=== PATIENT | male | born 1975 | race Caucasian/White ===

== ENCOUNTER 2019-06-17 16:13 | Emergency (ER) | payer OTHER ==
[2019-06-17 16:17] VITALS: BP 131/76; PULSE 79; TEMP 98.2; BMI 27.8
[2019-06-17] MEDS ORDERED: TETRACAINE 0.5% HCL 0.6ML DROPPER.BOTTLE OD ONE (17:22)
[2019-06-17] MEDS ORDERED: FLUORESCEIN NA 1 EA STRIP OD ONE (17:22)
[2019-06-17] MEDS ORDERED: FLUORESCEIN NA 1 EA STRIP ONE (17:25)
[2019-06-17] MEDS ORDERED: TETRACAINE 0.5% OPHTH SOLN 2 ML BOTTLE ONE (17:25)
[2019-06-17] MEDS ORDERED: ERYTHROMYCIN 0.5% OPHTHALMIC OINTMENT 3.5 GM TUBE OD ONE (17:31)
--- NOTE | 2019-06-17 17:35 | PDOC ---
History of Present Illness - General Chief Complaint: Eye Problem Stated Complaint: EYE PROBLEM Time Seen by Provider: 06/17/19 16:30 History Source: Patient Exam Limitations: No Limitations - History of Present Illness Initial Comments: 06/17/19 17:35 HISTORY OF PRESENT ILLNESS: This a 44-year-old otherwise healthy male who presents the emergency department for evaluation of right eye irritation over 2 days. Patient was concerned that he has itching burning sensation in his right eye with slight discharge present. The patient was concerned that his eyes now read the pain has not subsided over the past 2 days. No recent travel or sick contacts. PAST MEDICAL HISTORY: Denies past medical history SURGICAL HISTORY: Denies ALLERGIES: No known drug allergies REVIEW OF SYSTEMS General/Constitutional: Denies fever or chills. Denies weakness, weight change. HEENT: See HPI Cardiovascular: Denies chest pain or shortness of breath. Respiratory: Denies cough, wheezing, or hemoptysis. Gastrointestinal: Denies nausea, vomiting, diarrhea or constipation. Denies rectal bleeding. Genitourinary: Denies dysuria, frequency, or change in urination. Musculoskeletal: Denies joint or muscle swelling or pain. Denies neck or back pain. Skin and breasts: Denies rash or easy bruising. Neurologic: Denies headache, vertigo, loss of consciousness, or loss of sensation. Psychiatric: Denies depression or anxiety. Endocrine: Denies increased thirst. Denies abnormal weight change. Hematologic/Lymphatic: Denies anemia, easy bleeding, or history of blood clots. Allergic/Immunologic: Denies hives or skin allergy. Denies latex allergy. PHYSICAL EXAM General Appearance: Well-appearing, appropriately dressed. No apparent distress , no intoxication. HEENT: EOMI, PERRLA, normal ENT inspection, normal voice, TMs normal, pharynx normal. No conjunctival pallor. (+) photophobia. No scleral icterus. EYE EXAMINATION: Visual acuity: 20/20 in the left eye, 20/20 in the right eye, near, uncorrected The lid and lashes are normal. Extraocular movements are intact. The conjunctiva is erythematous with scleral injection extending to the limbus. No discharge The corneal surface is normal post tetracaine and fluorescein. There is no corneal abrasion or foreign body. There is no abnormal fluorescein uptake. The pupils are equal, round and reactive to light. The fundus shows normal vessels and normal discs. Neck: Supple. Trachea midline. No tenderness, rigidity, carotid bruit, stridor , lymphadenopathy, or thyromegaly. Neurologic: [employer] II-XII intact. Fully oriented, alert. Appropriate mood/affect. Motor strength 5/5. No appreciable EOM palsy, facial droop or sensory deficit. 06/17/19 17:37 06/17/19 17:38 06/17/19 17:39 Past History - Past Medical History Allergies/Adverse Reactions: Allergies Allergy/AdvReac Type Severity Reaction Status Date / Time No Known Allergies Allergy Verified 06/17/19 17:12 Home Medications: Ambulatory Orders Erythromycin 0.5% Eye Ointment [Erythromycin 0.5% Eye Ointment -] 1 applic OD QID #1 tube 06/17/19 Magnesium 250 mg PO DAILY 06/17/19 Vit C/Ascorb Sod/Multivit-Min [Emergen-C 500 mg Chewable Tab] 1 tab PO DAILY COPD: No - Psycho Social/Smoking Cessation Hx Smoking History: Never smoked *Physical Exam - Vital Signs Last Vital Signs Temp Pulse Resp BP Pulse Ox 98.2 F 79 18 131/76 99 06/17/19 16:14 06/17/19 16:14 06/17/19 16:14 06/17/19 16:14 06/17/19 16:14 Medical Decision Making - Medical Decision Making 06/17/19 17:34 A/P: 44-year-old male with right eye conjunctivitis EYE EXAMINATION: Visual acuity: 20/20 in the left eye, 20/20 in the right eye, near, uncorrected The lid and lashes are normal. Extraocular movements are intact. The conjunctiva is erythematous with scleral injection extending to the limbus. No discharge The corneal surface is normal post tetracaine and fluorescein. There is no corneal abrasion or foreign body. There is no abnormal fluorescein uptake. The pupils are equal, round and reactive to light. The fundus shows normal vessels and normal discs. Erythromycin ointment Discharge home Discharge - Discharge Information Problems reviewed: Yes Clinical Impression/Diagnosis: Conjunctivitis Qualifiers: Conjunctivitis type: acute Acute conjunctivitis type: unspecified Laterality: right Qualified Code(s): H10.31 - Unspecified acute conjunctivitis, right eye Condition: Stable Disposition: HOME - Admission No - Additional Discharge Information Prescriptions: Erythromycin 0.5% Eye Ointment [Erythromycin 0.5% Eye Ointment -] 1 applic OD QID #1 tube - Follow up/Referral Referrals: Patrick Stoll MD [Primary Care Provider] - Alfonso Bergeron MD [Staff Physician] - - Patient Discharge Instructions Patient Printed Discharge Instructions: DI for Conjunctivitis Additional Instructions: Rest, avoid rubbing eyes Wash hands frequently as this is very contagious Wash hands, use eye drops as directed, wash hands after use Do not share eye ointment with other person to may become infected as this will infect them Erthromycin ointment to affected eye 4 times a day for 5 days Avoid contact with others until redness and discharge is gone from eyes. Followup with ophthalmology or private physician as needed - Post Discharge Activity
[2019-06-17] MEDS ORDERED: ERYTHROMYCIN 0.5% OPHTHALMIC OINTMENT 3.5 GM TUBE ONE (17:38)
== END 2019-06-17 17:43 | disposition home or self-care (01) ==
LOC: JERFT 16:13
PROC: 4A07X0Z Measurement of Visual Acuity, External Approach (ICD-10-PCS; principal; 2019-06-17)
DX: H10.31 Unspecified acute conjunctivitis, right eye (principal)
CPT/HCPCS: 99173; 99281-25

== ENCOUNTER 2020-11-29 14:23 | Emergency (ER) | payer OTHER ==
[2020-11-29 14:32] VITALS: BP 150/93; PULSE 71; TEMP 97.9; BMI 31.9
[2020-11-29] MEDS ORDERED: IBUPROFEN 400 MG TABLET (FP) PO ONE ×2 (17:03→17:25)
== END 2020-11-29 18:21 | disposition home or self-care (01) ==
LOC: JER 14:23
DX: R51.9 Headache, unspecified (principal)
CPT/HCPCS: 70450-TC; 93005; 93010; 99284-25

== ENCOUNTER 2021-11-12 23:17 | Emergency (ER) | payer OTHER ==
[2021-11-12 23:46] VITALS: BP 171/77; PULSE 71; TEMP 97.7; BMI 29.6
[2021-11-13] MEDS ORDERED: METOCLOPRAMIDE HCL INJECTION 10 MG/2 ML VIAL ONE (00:18)
[2021-11-13] MEDS ORDERED: ACETAMINOPHEN INJECTION 100 ML IVPB ONE (00:18)
[2021-11-13 00:24] LABS: BASO % 0.8 % (0-2.0); EOS % 3.3 % (0-4.5); HEMATOCRIT 46.7 % (35.4-49); HEMOGLOBIN 15.5 GM/dL (11.7-16.9); LYMPH % 51.5 % (8-40); MCH 27.5 pg (25.7-33.7); MCHC 33.1 g/dl (32.0-35.9); MEAN CELL VOLUME 83.1 fl (80-96); MEAN PLT VOLUME 7.9 fl (7.5-11.1); MONO % 9.2 % (3.8-10.2); NEUT % 35.2 % (42.8-82.8); PLATELET COUNT 217 10^3/uL (134-434); RBC 5.62 M/mm3 (4.00-5.60); RDW 14.7 % (11.9-15.9); WHITE BLOOD COUNT 3.6 K/mm3 (4.0-10.0)
[2021-11-13] MEDS ORDERED: SODIUM CHLORIDE 0.9% 1000 ML INFUS.BAG IV ONE (00:25)
[2021-11-13] MEDS ORDERED: ACETAMINOPHEN 1000 MG/100 ML BAG IVPB ONE (00:25)
[2021-11-13] MEDS ORDERED: METOCLOPRAMIDE HCL INJECTION 10 MG/2 ML VIAL IVPUSH ONE (00:25)
[2021-11-13] MEDS ORDERED: KETOROLAC TROMETHAMINE 15 MG/ML VIAL IVPUSH ONE (00:27)
[2021-11-13] MEDS ORDERED: KETOROLAC TROMETHAMINE 15 MG/ML VIAL ONE (00:28)
[2021-11-13 00:42] LABS: CALCIUM 9.5 mg/dL (8.5-10.1)
[2021-11-13 00:43] LABS: ALBUMIN 4.1 g/dl (3.4-5.0); BLOOD UREA NITROGEN 16.6 mg/dL (7-18); MAGNESIUM 2.3 mg/dL (1.8-2.4)
[2021-11-13 00:46] LABS: CREATININE 1.2 mg/dL (0.55-1.3)
[2021-11-13 00:48] LABS: BILIRUBIN,TOTAL 0.2 mg/dL (0.2-1); TOT PROT 7.8 g/dl (6.4-8.2)
== END 2021-11-13 04:59 | disposition home or self-care (01) ==
LOC: JER 23:17
PROC: 3E033GC Introduction of Other Therapeutic Substance into Peripheral Vein, Percutaneous Approach (ICD-10-PCS; principal; 2021-11-12)
DX: R51.9 Headache, unspecified (principal); D72.819 Decreased white blood cell count, unspecified
CPT/HCPCS: 36415; 80053; 83735; 85025; 99284-25

== ENCOUNTER 2023-09-18 18:25 | Emergency (ER) | payer OTHER ==
[2023-09-18 18:40] VITALS: RESP 18; TEMP 98.6; BMI 28.3
[2023-09-18 18:41] VITALS: BP 142/85; PULSE 83
[2023-09-18] MEDS ORDERED: ACETAMINOPHEN 1000 MG/100 ML BAG IVPB ONE (19:09)
[2023-09-18] MEDS ORDERED: SODIUM CHLORIDE 0.9% 500 ML INFUS.BAG IV ONE (19:09)
[2023-09-18 19:32] LABS: BASO % 1.2 % (0-2.0); EOS % 2.7 % (0-4.5); HEMATOCRIT 49.4 % (35.4-49); HEMOGLOBIN 16.6 GM/dL (11.7-16.9); LYMPH % 47.3 % (8-40); MCH 28.3 pg (25.7-33.7); MCHC 33.7 g/dl (32.0-35.9); MEAN PLT VOLUME 7.7 fl (7.5-11.1); NEUT % 40.8 % (42.8-82.8); PLATELET COUNT 292 10^3/uL (134-434); RBC 5.88 M/mm3 (4.00-5.60); RDW 14.4 % (11.9-15.9); WHITE BLOOD COUNT 4.3 K/mm3 (4.0-10.0)
[2023-09-18] MEDS ORDERED: KETOROLAC TROMETHAMINE 15 MG/ML VIAL IM ONE (19:54)
[2023-09-18 19:57] LABS: POTASSIUM 4.6 mmol/L (3.5-5.1)
[2023-09-18 19:59] LABS: CALCIUM 9.9 mg/dL (8.5-10.1)
[2023-09-18 20:00] LABS: BLOOD UREA NITROGEN 14.4 mg/dL (7-18); MAGNESIUM 2.3 mg/dL (1.8-2.4)
[2023-09-18 20:03] LABS: CREATININE 1.3 mg/dL (0.55-1.3)
[2023-09-18 20:04] LABS: BILIRUBIN,TOTAL 0.2 mg/dL (0.2-1); TOT PROT 7.8 g/dl (6.4-8.2)
[2023-09-18] MEDS ORDERED: KETOROLAC TROMETHAMINE 15 MG/ML VIAL IVPUSH ONE (20:10)
[2023-09-18] MEDS ORDERED: ACETAMINOPHEN INJECTION 100 ML IVPB ONE (20:11)
[2023-09-18] MEDS ORDERED: KETOROLAC TROMETHAMINE 15 MG/ML VIAL ONE (20:11)
== END 2023-09-18 22:33 | disposition home or self-care (01) ==
LOC: JER 18:25
PROC: 3E033NZ Introduction of Analgesics, Hypnotics, Sedatives into Peripheral Vein, Percutaneous Approach (ICD-10-PCS; principal; 2023-09-18)
PROC: 3E0333Z Introduction of Anti-inflammatory into Peripheral Vein, Percutaneous Approach (ICD-10-PCS; 2023-09-18)
DX: R07.9 Chest pain, unspecified (principal); M79.601 Pain in right arm; M54.9 Dorsalgia, unspecified; M54.2 Cervicalgia; R29.898 Other symptoms and signs involving the musculoskeletal system; Z20.822 Contact with and (suspected) exposure to COVID-19
CPT/HCPCS: 0241U-QW; 36415; 71046-TC-FY; 71275-TC; 74174-TC; 80053; 83690; 83735; 83880; 84484; 85025; 93005; 93010; 99285-25

== ENCOUNTER 2024-03-14 11:56 | Emergency (ER) | payer OTHER ==
[2024-03-14 12:02] VITALS: BP 138/81; PULSE 58; RESP 18; TEMP 97.6; BMI 27.6
[2024-03-14] MEDS ORDERED: LIDOCAINE 4% PATCH TP ONE (12:41)
[2024-03-14] MEDS ORDERED: ACETAMINOPHEN 500 MG TABLET (FP) ONE (12:42)
[2024-03-14] MEDS ORDERED: KETOROLAC TROMETHAMINE 30 MG/1 ML VIAL ONE (12:42)
[2024-03-14] MEDS: KETOROLAC TROMETHAMINE 30 MG/1 ML VIAL IM ONE (12:53)
[2024-03-14] MEDS: LIDOCAINE 4% PATCH TP ONE (12:53)
[2024-03-14] MEDS: ACETAMINOPHEN 500 MG TABLET (FP) PO ONE (12:54)
[2024-03-14] MEDS ORDERED: LIDOCAINE PATCH REMOVAL MC SCH (22:00)
== END 2024-03-14 13:30 | disposition home or self-care (01) ==
LOC: JERFT 11:56
PROC: 3E0133Z Introduction of Anti-inflammatory into Subcutaneous Tissue, Percutaneous Approach (ICD-10-PCS; principal; 2024-03-14)
DX: M25.461 Effusion, right knee (principal)
CPT/HCPCS: 73562-TC-RT-FY; 96372; 99284-25